=== PATIENT | male | born 1970 | race Caucasian/White ===

== ENCOUNTER 2018-03-10 10:14 | Emergency (ER) | payer BC ==
[~2018-03-10] VITALS: Ht 175.3 cm; Wt 149.7 kg
[~2018-03-10 10:14] MED LIST: CYCL10 PO; FEXPSEER PO; IBUP400 PO; IBUP600 PO; Multiple Vitam1 EAC1 PO; NAPR220 PO; PHENTERMINE PO; RANI150 PO; TRAM50 PO
[2018-03-10] MEDS ORDERED: Norco 5-325 Ta1 EACH PO (12:03)
[2018-03-10] MEDS ORDERED: Robaxin500 MG PO (12:03)
== END 2018-03-10 12:14 | disposition home or self-care (01) ==
LOC: ER 10:14
DX: M25.511 Pain in right shoulder (principal); Z88.0 Allergy status to penicillin; Z79.899 Other long term (current) drug therapy; F17.220 Nicotine dependence, chewing tobacco, uncomplicated
CPT/HCPCS: 73030; 99283

== ENCOUNTER 2018-12-14 18:46 | Emergency (ER) | payer BC ==
[~2018-12-14] VITALS: Ht 175.3 cm; Wt 145.2 kg
[~2018-12-14 18:46] MED LIST changes: +Norco 5-325 Ta1 EACH PO; +Robaxin500 MG PO
[2018-12-14] MEDS ORDERED: Percocet 5-3251 EACH PO (20:09)
== END 2018-12-14 20:16 | disposition home or self-care (01) ==
LOC: ER 18:46
DX: T24.201A Burn of second degree of unspecified site of right lower limb, except ankle and foot, initial encounter (principal); T31.0 Burns involving less than 10% of body surface; Z88.0 Allergy status to penicillin; Z79.899 Other long term (current) drug therapy; X19.XXXA Contact with other heat and hot substances, initial encounter
CPT/HCPCS: 16020; 96372; 99283-25; J1885

== ENCOUNTER 2018-12-23 12:13 | Day surgery (SDC) | payer BC ==
[~2018-12-23 12:13] MED LIST changes: +Percocet 5-3251 EACH PO
== END 2018-12-23 22:52 | disposition home or self-care (01) ==
LOC: WOUND 12:13
DX: T24.231A Burn of second degree of right lower leg, initial encounter (principal); T24.331A Burn of third degree of right lower leg, initial encounter; E66.9 Obesity, unspecified; Z88.0 Allergy status to penicillin; F17.220 Nicotine dependence, chewing tobacco, uncomplicated
CPT/HCPCS: G0463

== ENCOUNTER → 2020-11-30 | Outpatient (CLI) | payer BC ==
[~2020-11-30] MED LIST changes: +ACET325 PO; +ASPI81CH PO; +CHLO25 PO; +ESCI10 PO; +HYDCHL25 PO; +LOSA50 PO; +METFORMIN HCL500 M2 PO; +METO25 PO; +PANT20 PO
== END ==
LOC: LAB 16:00 → LAB SHORT 16:00
DX: R19.7 Diarrhea, unspecified (principal)
CPT/HCPCS: 87015; 87045; 87046; 87177; 87205; 87209; 87493; 87899

== ENCOUNTER 2021-03-01 14:49 | Emergency (ER) | payer BC ==
[~2021-03-01] VITALS: Ht 175.3 cm; Wt 136.1 kg
[~2021-03-01 14:49] MED LIST changes: -ACET325 PO; -ASPI81CH PO; -CHLO25 PO; -ESCI10 PO; -HYDCHL25 PO; -LOSA50 PO; -METFORMIN HCL500 M2 PO; -METO25 PO; -PANT20 PO
[2021-03-01 15:50] LABS: BASOPHILS ABSOLUTE AUTO 0.07 K/mm3 (0.00-0.23); BASOPHILS PERCENT AUTO 1 % (0-2); EOSINOPHILS PERCENT AUTO 2 % (0-6); Hematocrit 41.5 % (37.0-53.0); Hemoglobin 14.9 g/dL (13.5-17.5); IMMATURE GRAN ABSOLUTE AUTO 0.03 K/mm3 (0.00-0.10); IMMATURE GRAN PERCENT AUTO 0 % (0-1); LYMPHOCYTES ABSOLUTE AUTO 3.42 K/mm3 (0.84-5.20); LYMPHOCYTES PERCENT AUTO 38 % (21-46); MONOCYTES ABSOLUTE AUTO 0.82 K/mm3 (0.16-1.47); MONOCYTES PERCENT AUTO 9 % (4-13); Mean Corpuscular HGB 33.5 pg (26.0-34.0); Mean Corpuscular HGB Conc 35.9 g/dL (31.5-36.5); Mean Corpuscular Volume 93 fL (80-100); NEUTROPHILS ABSOLUTE AUTO 4.47 K/mm3 (1.96-9.15); NEUTROPHILS PERCENT AUTO 50 % (41-73); Platelet Count 214 K/mm3 (150-400); RDW Coefficient Variation 11.9 % (11.7-14.2); RDW Standard Deviation 40.6 fL (35.1-46.3); Red Blood Cell Count 4.45 M/mm3 (4.30-5.90); White Blood Cell Count 9.01 K/mm3 (4.00-11.30)
[2021-03-01 16:33] LABS: Alanine Aminotransfer (ALT/SGP 75 U/L (12-78); Albumin, Blood 3.7 g/dL (3.4-5.0); Alk Phos 66 U/L (50-136); Anion Gap 6 mmol/L (6-16); Aspartate Aminotrans (AST/SGOT 44 U/L (12-37); Bilirubin, Total 0.8 mg/dL (0.1-1.0); Blood Urea Nitrogen 14 mg/dL (8-24); Bun/Creatinine Ratio 13.1 (12.0-20.0); CO2, Blood 29 mmol/L (21-32); Calcium, Blood 9.1 mg/dL (8.5-10.1); Chloride, Blood 100 mmol/L (98-108); Creatinine, Blood 1.07 mg/dL (0.60-1.20); Globulin, Blood 3.8 g/dL (2.2-4.0); Glomerular Filtration Rate >60 (60-); Glucose, Blood 113 mg/dL (70-99); Potassium, Blood 3.6 mmol/L (3.5-5.5); Sodium, Blood 135 mmol/L (136-145); Total Protein, Blood 7.5 g/dL (6.4-8.2)
[2021-03-01 16:38] LABS: Appearance, Urine Clear (Clear); Bilirubin, Urine Neg (Neg); Blood, Urine Neg (Neg); Color, Urine Yellow (P-Yellow); Glucose Qualitative, Urine Neg (Neg); Ketones, Urine Neg (Neg); Leukocyte Esterase, Urine Neg (Neg); Nitrite, Urine Neg (Neg); Protein, Urine Neg (Neg); Specific Gravity, Urine 1.015 (1.003-1.022); Urobilinogen, Urine NORM (Normal)
[2021-03-01] MEDS ORDERED: HYDCHL25 PO (18:36)
[2021-03-01] MEDS ORDERED: METFORMIN HCL500 M2 PO (18:36)
[2021-03-01] MEDS ORDERED: LOSA50 PO (18:36)
[2021-03-01] MEDS ORDERED: ESCI10 PO (18:37)
[2021-03-01] MEDS ORDERED: PANT20 PO (18:37)
== END 2021-03-01 19:31 | disposition home or self-care (01) ==
LOC: ER 14:49
PROVIDERS: Emergency Medicine; Physician Assistant
DX: S29.019A Strain of muscle and tendon of unspecified wall of thorax, initial encounter (principal); R10.9 Unspecified abdominal pain; G89.29 Other chronic pain; Z88.0 Allergy status to penicillin; Z79.899 Other long term (current) drug therapy; X50.9XXA Other and unspecified overexertion or strenuous movements or postures, initial encounter
CPT/HCPCS: 36415; 74176; 80053; 81003; 85025; 96374; 99284-25; J1885

== ENCOUNTER 2021-05-02 18:56 | Observation (INO) | payer BC ==
[~2021-05-02] VITALS: Ht 175.3 cm; Wt 139.6 kg
[~2021-05-02 18:56] MED LIST changes: +ESCI10 PO; +HYDCHL25 PO; +LOSA50 PO; +METFORMIN HCL500 M2 PO; +PANT20 PO
[2021-05-02 20:27] LABS: BASOPHILS ABSOLUTE AUTO 0.06 K/mm3 (0.00-0.23); BASOPHILS PERCENT AUTO 1 % (0-2); EOSINOPHILS PERCENT AUTO 2 % (0-6); Hematocrit 40.4 % (37.0-53.0); Hemoglobin 14.3 g/dL (13.5-17.5); IMMATURE GRAN ABSOLUTE AUTO 0.03 K/mm3 (0.00-0.10); IMMATURE GRAN PERCENT AUTO 1 % (0-1); LYMPHOCYTES PERCENT AUTO 55 % (21-46); MONOCYTES ABSOLUTE AUTO 0.55 K/mm3 (0.16-1.47); MONOCYTES PERCENT AUTO 10 % (4-13); Mean Corpuscular HGB 32.7 pg (26.0-34.0); Mean Corpuscular HGB Conc 35.4 g/dL (31.5-36.5); Mean Corpuscular Volume 92 fL (80-100); Mean Platelet Volume 9.5 fL (9.1-12.4); NEUTROPHILS ABSOLUTE AUTO 1.79 K/mm3 (1.96-9.15); NEUTROPHILS PERCENT AUTO 32 % (41-73); Platelet Count 239 K/mm3 (150-400); RDW Coefficient Variation 12.1 % (11.7-14.2); RDW Standard Deviation 41.7 fL (35.1-46.3); Red Blood Cell Count 4.37 M/mm3 (4.30-5.90); White Blood Cell Count 5.63 K/mm3 (4.00-11.30)
[2021-05-02 20:47] LABS: Alanine Aminotransfer (ALT/SGP 98 U/L (12-78); Albumin, Blood 3.3 g/dL (3.4-5.0); Albumin/Globulin Ratio 0.9 (0.8-1.8); Alk Phos 73 U/L (50-136); Anion Gap 7 mmol/L (6-16); Aspartate Aminotrans (AST/SGOT 80 U/L (12-37); Bilirubin, Total 0.4 mg/dL (0.1-1.0); Blood Urea Nitrogen 13 mg/dL (8-24); Bun/Creatinine Ratio 14.6 (12.0-20.0); CO2, Blood 29 mmol/L (21-32); Calcium, Blood 8.1 mg/dL (8.5-10.1); Chloride, Blood 101 mmol/L (98-108); Creatinine, Blood 0.89 mg/dL (0.60-1.20); Globulin, Blood 3.6 g/dL (2.2-4.0); Glomerular Filtration Rate >60 (60-); Glucose, Blood 182 mg/dL (70-99); Magnesium, Blood 1.9 mg/dL (1.6-2.4); Potassium, Blood 3.8 mmol/L (3.5-5.5); Sodium, Blood 137 mmol/L (136-145); Total Protein, Blood 6.9 g/dL (6.4-8.2); Troponin I <0.015 ng/mL (0.000-0.040)
--- NOTE | 2021-05-03 01:00 | NUR ---
ARRIVAL TO ICU: PT ARRIVES AN ADMIT FROM THE ED. PER PT HE BEGAN TO HAVE CHEST PALPITATIONS OVER THE PAST TWO DAYS W/ THE HIGHEST BEING IN THE 150s. YESTERDAY HIS CP BECAME PROGRESSIVELY WORSE, RADIATING TO HIS JAW, ARM & CAUSING NAUSEA. 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 PT IS VERY RECEPTIVE TO RECEIVING HELP FOR HIS ETOH & AGREES HE MUST MAKE LIFESTYLE CHANGES TO PRESERVE HIS HEALTH. PER ADMITTING HOSPITALIST, JILLIAN, PLAN TO STABILIZE PT's WITHDRAWALS, DRAW SERIAL TROPONINS, & TO THEN CONSULT CARDIOLOGY FOR A STRESS TEST D/T PT's HIGH ACS RISK. PT IS AGREEABLE TO THIS PLAN. SEE INITIAL ASSESSMENT FOR FULL PT ASSESSMENT.
[2021-05-03 04:06] LABS: BASOPHILS ABSOLUTE AUTO 0.04 K/mm3 (0.00-0.23); BASOPHILS PERCENT AUTO 1 % (0-2); EOSINOPHILS ABSOLUTE AUTO 0.09 K/mm3 (0.00-0.68); EOSINOPHILS PERCENT AUTO 2 % (0-6); Hematocrit 38.8 % (37.0-53.0); Hemoglobin 13.8 g/dL (13.5-17.5); IMMATURE GRAN ABSOLUTE AUTO 0.01 K/mm3 (0.00-0.10); IMMATURE GRAN PERCENT AUTO 0 % (0-1); LYMPHOCYTES ABSOLUTE AUTO 2.36 K/mm3 (0.84-5.20); LYMPHOCYTES PERCENT AUTO 54 % (21-46); MONOCYTES ABSOLUTE AUTO 0.36 K/mm3 (0.16-1.47); MONOCYTES PERCENT AUTO 8 % (4-13); Mean Corpuscular HGB 32.9 pg (26.0-34.0); Mean Corpuscular HGB Conc 35.6 g/dL (31.5-36.5); Mean Corpuscular Volume 93 fL (80-100); Mean Platelet Volume 9.5 fL (9.1-12.4); NEUTROPHILS ABSOLUTE AUTO 1.51 K/mm3 (1.96-9.15); NEUTROPHILS PERCENT AUTO 35 % (41-73); Platelet Count 208 K/mm3 (150-400); RDW Coefficient Variation 12.1 % (11.7-14.2); RDW Standard Deviation 41.3 fL (35.1-46.3); Red Blood Cell Count 4.19 M/mm3 (4.30-5.90); White Blood Cell Count 4.37 K/mm3 (4.00-11.30)
[2021-05-03 04:28] LABS: Alanine Aminotransfer (ALT/SGP 95 U/L (12-78); Albumin, Blood 3.3 g/dL (3.4-5.0); Alk Phos 71 U/L (50-136); Anion Gap 7 mmol/L (6-16); Aspartate Aminotrans (AST/SGOT 82 U/L (12-37); Bilirubin, Total 0.5 mg/dL (0.1-1.0); Blood Urea Nitrogen 15 mg/dL (8-24); Bun/Creatinine Ratio 19.1 (12.0-20.0); CO2, Blood 29 mmol/L (21-32); Calcium, Blood 7.8 mg/dL (8.5-10.1); Chloride, Blood 98 mmol/L (98-108); Creatinine, Blood 0.78 mg/dL (0.60-1.20); Globulin, Blood 3.3 g/dL (2.2-4.0); Glomerular Filtration Rate >60 (60-); Glucose, Blood 141 mg/dL (70-99); Potassium, Blood 3.7 mmol/L (3.5-5.5); Sodium, Blood 134 mmol/L (136-145); Total Protein, Blood 6.6 g/dL (6.4-8.2); Troponin I 0.017 ng/mL (0.000-0.040)
--- NOTE | 2021-05-03 07:00 | NUR ---
SHIFT SUMMARY: PT WAS ABLE TO REST WELL T/O THE NIGHT. UPON ARRIVAL PT WAS MEDICATED FOR A CIWA OF 9 & HAS BEEN RESTING SINCE, AWAKING ONLY FOR RN CARE. NONETHELESS, LAST NIGHT PT DISPLAYED MANY SIGNS OF HIS POORLY MANAGED YOANDY. HE REFUSED A CPAP,STATING HE WOULD RATHER USE HIS OWN ONCE HIS SPOUSE BRINGS IT IN. PT HAD SEVERAL MOMENTS OF APNEA EVERY FEW MINUTES, DESATTING TO A LOW OF 80%. O2 INCREASED TO 6L/min MAINTAIN SATS >94%. CONTINUES TO DENY CP. NO ACUTE NEG CHANGES IN VS. WILL CONTINUE TO MONITOR UNTIL REPORT OFF TO ONCOMING RN.
--- NOTE | 2021-05-03 07:30 | NUR ---
ASSUMED CARE: PT RESTING QUIETLY AT THIS TIME. VITAL SIGNS STABLE. 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 NO ACUTE NEEDS AT THIS TIME.
--- NOTE | 2021-05-03 17:46 | NUR ---
SHIFT SUMMARY: PT'S CIWA SCORE HAS BEEN BETWEEN 9 AND 12 THIS SHIFT. MEDICATED WITH NITRO X1 FOR CHEST PAIN THAT WAS RESOLVED WITH MEDICATION. PLAN IS FOR STABILIZATION WITH WITHDRAWALS BEFORE PURSUING ACS. NSR THIS SHIFT WITH HR IN 70S. NO FURTHER NEEDS AT THIS TIME.
--- NOTE | 2021-05-03 19:10 | NUR ---
ASSUMPTION OF CARE RECEIVED REPORT FROM MIKAEL CARR. ASSUMED CARE OF PATIENT. PATIENT SITTING UP IN BED, A/O. NO S/S OF DISTRESS. DENIED PAIN, ASKED FOR ICE WATER. TELEMETRY STABLE. ORIENTED PATIENT TO CALL LIGHT AND REQUESTED PATIENT CALL BEFORE GETTING UP ON OWN. PATIENT VERBALIZED UNDERSTANDING. WILL REVIEW ORDERS AND TREAT PRESCRIBED.
--- NOTE | 2021-05-04 00:15 | NUR ---
REASSESSMENT NO ACUTE CHANGES FROM PREVIOUS ASSESSMENT. TRENDING BLOOD PRESSURES AND MEDICATING PRESCRIBED. PATIENT DENIES NEEDS OR DISCOMFORTS. REMAINS ORIENTED AND COOPERATIVE WITH CARE. CALL LIGHT IN REACH.
[2021-05-04 03:50] LABS: BASOPHILS ABSOLUTE AUTO 0.04 K/mm3 (0.00-0.23); BASOPHILS PERCENT AUTO 1 % (0-2); EOSINOPHILS ABSOLUTE AUTO 0.14 K/mm3 (0.00-0.68); EOSINOPHILS PERCENT AUTO 3 % (0-6); Hematocrit 38.1 % (37.0-53.0); Hemoglobin 13.7 g/dL (13.5-17.5); IMMATURE GRAN ABSOLUTE AUTO 0.01 K/mm3 (0.00-0.10); IMMATURE GRAN PERCENT AUTO 0 % (0-1); LYMPHOCYTES ABSOLUTE AUTO 1.81 K/mm3 (0.84-5.20); LYMPHOCYTES PERCENT AUTO 43 % (21-46); MONOCYTES ABSOLUTE AUTO 0.33 K/mm3 (0.16-1.47); MONOCYTES PERCENT AUTO 8 % (4-13); Mean Corpuscular HGB 33.3 pg (26.0-34.0); Mean Corpuscular Volume 93 fL (80-100); Mean Platelet Volume 10.2 fL (9.1-12.4); NEUTROPHILS ABSOLUTE AUTO 1.91 K/mm3 (1.96-9.15); NEUTROPHILS PERCENT AUTO 45 % (41-73); Platelet Count 170 K/mm3 (150-400); RDW Coefficient Variation 11.8 % (11.7-14.2); Red Blood Cell Count 4.11 M/mm3 (4.30-5.90); White Blood Cell Count 4.24 K/mm3 (4.00-11.30)
[2021-05-04 04:15] LABS: Alanine Aminotransfer (ALT/SGP 131 U/L (12-78); Albumin, Blood 3.5 g/dL (3.4-5.0); Albumin/Globulin Ratio 1.1 (0.8-1.8); Alk Phos 88 U/L (50-136); Anion Gap 9 mmol/L (6-16); Aspartate Aminotrans (AST/SGOT 186 U/L (12-37); Bilirubin, Total 2.5 mg/dL (0.1-1.0); Blood Urea Nitrogen 12 mg/dL (8-24); Bun/Creatinine Ratio 13.7 (12.0-20.0); CO2, Blood 27 mmol/L (21-32); Calcium, Blood 8.6 mg/dL (8.5-10.1); Chloride, Blood 96 mmol/L (98-108); Creatinine, Blood 0.88 mg/dL (0.60-1.20); Globulin, Blood 3.3 g/dL (2.2-4.0); Glomerular Filtration Rate >60 (60-); Glucose, Blood 155 mg/dL (70-99); Potassium, Blood 3.1 mmol/L (3.5-5.5); Sodium, Blood 132 mmol/L (136-145); Total Protein, Blood 6.8 g/dL (6.4-8.2)
--- NOTE | 2021-05-04 04:15 | NUR ---
REASSESSMENT NO ACUTE CHANGES FROM PREVIOUS ASSESMENT. PATIENT REMAINS A/O, COOPERATIVE. VITALS STABLE. CONTINUING TO TREND BLOOD PRESSURE AND TREAT HYPERTENSION PRESCRIBED. CALL LIGHT IN REACH.
--- NOTE | 2021-05-04 06:25 | NUR ---
SHIFT SUMMARY PATIENT REMAINED ORIENTED AND COOPERATIVE THROUGH SHIFT. REPORTED MILD HEADACHE WITH VISIBLE MILD TREMORS NOTED. HYPERTENSION TREATED THROUGH NIGHT, WELL LIBRIUM AND ATIVAN GIVEN FOR WITHDRAWAL SYMPTOMS. PATIENT UTILIZED URINAL INDEPENDENTLY, CALL LIGHT WITHIN REACH. WILL CONTINUE TO MONITOR AND REPORT TO ONCOMING RN.
--- NOTE | 2021-05-04 08:00 | NUR ---
PT A&OX4-DENIES CP OR SOB. PT SITTING UP IN CHAIR EATING BREAKFAST WITHOUT NOTED DISTRESS. SBP TRENDING 150'S/90'S-ROUTINE AM BP MEDS GIVEN. PT HAS CALL LIGHT WITHIN REACH AND WILL CALL FOR ASSISTANCE PRN.
[2021-05-04] MEDS ORDERED: ASPI81CH PO (11:41)
[2021-05-04] MEDS ORDERED: ACET325 PO (11:43)
[2021-05-04] MEDS ORDERED: METO25 PO (11:44)
[2021-05-04] MEDS ORDERED: CHLO25 PO (11:46)
--- NOTE | 2021-05-04 13:30 | NUR ---
REVIEWED DISCHARGE INSTRUCTIONS WITH PT AND HIS CARI. PT TO HAVE CARDIACE STRESS TEST 05/11 AND 05/12-DETAILED INSTRUCTIONS REVIEWED WITH BOTH PT AND HIS -BOTH VERBALIZE UNDERSTANDING. RX PHONED TO [facility] IN [address]. PT DISCHARGE TO HOME-REFUSED WHEELCHAIR. PT AMBULATED WITH HIS -GAIT STEADY. DISCHARGE INSTRUCTIONS AND BELONGINGS SENT HOME WITH PT CARI.
== END 2021-05-04 13:32 | disposition home or self-care (01) ==
LOC: ER 18:56 → ICUE 18:57 → ICUW 18:57 → ICUE 23:52
PROVIDERS: Internal Medicine; Nurse Practitioner Acute Care; Physician Assistant; ADMIT Internal Medicine
DX: R07.9 Chest pain, unspecified (principal); I10 Essential (primary) hypertension; E78.5 Hyperlipidemia, unspecified; E11.9 Type 2 diabetes mellitus without complications; E66.01 Morbid (severe) obesity due to excess calories; G47.33 Obstructive sleep apnea (adult) (pediatric); K21.9 Gastro-esophageal reflux disease without esophagitis; F17.220 Nicotine dependence, chewing tobacco, uncomplicated; F10.239 Alcohol dependence with withdrawal, unspecified; Z79.84 Long term (current) use of oral hypoglycemic drugs; Z68.41 Body mass index [BMI] 40.0-44.9, adult
CPT/HCPCS: 36415; 71045; 80053; 82947; 83735; 84484; 85025; 85379; 93005; 93010; 94660; 96372; 96374; 96375; 96376; 99285-25; A9270; G0378; J0360; J1644; J2060; J3010

== ENCOUNTER 2021-05-25 08:48 | Emergency (ER) | payer BC ==
[~2021-05-25] VITALS: Ht 175.3 cm; Wt 136.1 kg
[~2021-05-25 08:48] MED LIST changes: +ACET325 PO; +ASPI81CH PO; +CHLO25 PO; +METO25 PO
[2021-05-25 09:30] LABS: BASOPHILS ABSOLUTE AUTO 0.06 K/mm3 (0.00-0.23); BASOPHILS PERCENT AUTO 1 % (0-2); EOSINOPHILS ABSOLUTE AUTO 0.11 K/mm3 (0.00-0.68); EOSINOPHILS PERCENT AUTO 2 % (0-6); Hematocrit 38.6 % (37.0-53.0); Hemoglobin 13.5 g/dL (13.5-17.5); IMMATURE GRAN ABSOLUTE AUTO 0.03 K/mm3 (0.00-0.10); IMMATURE GRAN PERCENT AUTO 1 % (0-1); LYMPHOCYTES ABSOLUTE AUTO 3.46 K/mm3 (0.84-5.20); LYMPHOCYTES PERCENT AUTO 55 % (21-46); MONOCYTES ABSOLUTE AUTO 0.38 K/mm3 (0.16-1.47); MONOCYTES PERCENT AUTO 6 % (4-13); Mean Corpuscular HGB 33.6 pg (26.0-34.0); Mean Corpuscular Volume 96 fL (80-100); Mean Platelet Volume 9.2 fL (9.1-12.4); NEUTROPHILS ABSOLUTE AUTO 2.27 K/mm3 (1.96-9.15); NEUTROPHILS PERCENT AUTO 36 % (41-73); Platelet Count 257 K/mm3 (150-400); RDW Coefficient Variation 12.5 % (11.7-14.2); RDW Standard Deviation 44.4 fL (35.1-46.3); Red Blood Cell Count 4.02 M/mm3 (4.30-5.90); White Blood Cell Count 6.31 K/mm3 (4.00-11.30)
[2021-05-25 10:06] LABS: Alanine Aminotransfer (ALT/SGP 117 U/L (12-78); Albumin, Blood 3.6 g/dL (3.4-5.0); Alk Phos 71 U/L (50-136); Anion Gap 12 mmol/L (6-16); Aspartate Aminotrans (AST/SGOT 55 U/L (12-37); Bilirubin, Total 0.2 mg/dL (0.1-1.0); Blood Urea Nitrogen 12 mg/dL (8-24); Bun/Creatinine Ratio 16.3 (12.0-20.0); CO2, Blood 25 mmol/L (21-32); Calcium, Blood 7.8 mg/dL (8.5-10.1); Chloride, Blood 100 mmol/L (98-108); Creatinine, Blood 0.74 mg/dL (0.60-1.20); Globulin, Blood 3.6 g/dL (2.2-4.0); Glomerular Filtration Rate >60 (60-); Glucose, Blood 161 mg/dL (70-99); Potassium, Blood 3.8 mmol/L (3.5-5.5); Sodium, Blood 137 mmol/L (136-145); Total Protein, Blood 7.2 g/dL (6.4-8.2); Troponin I <0.015 ng/mL (0.000-0.040)
== END 2021-05-25 15:09 | disposition home or self-care (01) ==
LOC: ER 08:48
PROVIDERS: Emergency Medicine
DX: R07.9 Chest pain, unspecified (principal); I10 Essential (primary) hypertension; F17.220 Nicotine dependence, chewing tobacco, uncomplicated; Z79.899 Other long term (current) drug therapy; Z79.82 Long term (current) use of aspirin; Z88.0 Allergy status to penicillin
CPT/HCPCS: 36415; 71046; 71260; 80053; 82947; 83690; 83880; 84484; 85025; 93005; 93010; 96374-59; 99284-25; J2405; J7030; Q9967